=== PATIENT | female | born 1945 | race Caucasian/White ===

== ENCOUNTER 2019-02-21 08:21 | Inpatient (IN) | payer MEDICARE, BC ==
[~2019-02-21] VITALS: Ht 162.6 cm; Wt 64.9 kg
--- NOTE | 2019-02-21 08:30 | NUR ---
GENERALIZED WEAKNESS, DIFFICULTY WALKING X 2 WEEKS. RLE EDEMA NOTED. PATIENT A/OX4, BREATHING EVEN AND UNLABORED, NO SOB NOTED, NEEDS ATTENDED .CHANGED INTO GOWN, ATTACHED TO THE ROOFING APPRENTICE.
[2019-02-21 09:01] LABS: CALCIUM, SERUM 9.6 mg/dL (8.5-10.1); CARBON DIOXIDE 23 mmol/L (21-32); CHLORIDE 104 mmol/L (98-107); CREATININE 0.7 mg/dL (0.6-1.3); GLUCOSE 90 mg/dL (74-106); SODIUM SERUM 144 mmol/L (136-145); UREA NITROGEN, BLOOD 11 mg/dL (7-18)
[2019-02-21 09:07] LABS: ALANINE AMINOTRANSFERASE 12 U/L (12-78); ALBUMIN 3.8 g/dL (3.4-5.0); ALKALINE PHOSPHATASE 82 U/L (46-116); ASPARTATE AMINOTRANSFERASE 16 U/L (15-37); BILIRUBIN,DIRECT 0.3 mg/dL (0.0-0.2); BILIRUBIN,TOTAL 1.2 mg/dL (0.2-1.0); TOTAL PROTEIN, SERUM 7.6 g/dL (6.4-8.2)
[2019-02-21 09:21] LABS: APPEARANCE,URINE Clear (CLEAR); BILIRUBIN,URINE Negative (NEGATIVE); BLOOD, URINE Moderate Ery/uL (NEGATIVE); COLOR,URINE Yellow (YELLOW); KETONES,URINE 80 (NEGATIVE); LEUKOCYTE ESTERASE ,URINE Small (NEGATIVE); NITRITE, URINE Negative (NEGATIVE); PROTEIN,URINE Negative (NEGATIVE); UGLUCOSE Negative (NEGATIVE); UROBILINOGEN,URINE 0.2 EU/dL (0.2)
[2019-02-21 09:22] LABS: BASOPHILS % (AUTO) 0.4 % (0.0-2.0); EOSINOPHILS % (AUTO) 0.6 % (0.0-6.0); HEMATOCRIT 40 % (33-45); HEMOGLOBIN 13.8 g/dL (11.5-14.8); LYMPHOCYTES # (AUTO) 0.6 /CMM (0.8-4.8); LYMPHOCYTES % (AUTO) 8.6 % (20.0-44.0); MEAN CORPUSCULAR HGB CONC 34 g/dl (31.0-36.0); MEAN CORPUSCULAR VOLUME 87 fL (82-100); MONOCYTES # (AUTO) 0.6 /CMM (0.1-1.30); MONOCYTES % (AUTO) 7.5 % (2.0-12.0); NEUTROPHILS # (AUTO) 6.2 /CMM (1.8-8.9); NEUTROPHILS % (AUTO) 82.9 % (43.0-81.0); PLATELET COUNT (AUTO) 223 /CMM (150-450); RED BLOOD CELL COUNT(AUTO) 4.65 MIL/uL (4.0-5.2); WHITE BLOOD COUNT (AUTO) 7.5 K/uL (4.3-11.0)
[2019-02-21] MEDS ORDERED: AMLO-102 PO (09:26)
[2019-02-21] MEDS ORDERED: SIMV-49 PO (09:26)
[2019-02-21] MEDS ORDERED: HYDR25TA4 PO (09:26)
[2019-02-21 09:27] LABS: BACTERIA,URINE Few /HPF (None Seen); SQUAMOUS EPITHELIAL CELL,UR Few /HPF (None Seen)
[2019-02-21] MEDS ORDERED: CEFTRIAXONE 1GM BAG (ER ONLY) 50 ML IV ONE (09:57)
[2019-02-21] MEDS ORDERED: CEFTRIAXONE 1GM BAG (ER ONLY) 1 GM/50 ML PIGGYBACK IV ONE (10:00)
--- NOTE | 2019-02-21 10:17 | NUR ---
BED ASSIGN 325-1 TELE
[2019-02-21] MEDS ORDERED: POTASSIUM CHLORIDE 20 MEQ TAB.PRT.SR PO ONE ×2 (10:25→10:30)
[2019-02-21] MEDS ORDERED: MAG HYDROX/AL HYDROX/SIMETH 30 ML UDC PO PRN (10:30)
[2019-02-21] MEDS ORDERED: CLONIDINE HCL 0.1 MG TABLET PO PRN (10:30)
[2019-02-21] MEDS ORDERED: Z GUARD REMEDY 2 OZ OINT TP PRN (10:30)
[2019-02-21] MEDS ORDERED: ACETAMINOPHEN 325 MG TABLET PO PRN (10:30)
[2019-02-21] MEDS ORDERED: ONDANSETRON HCL/PF 4 MG/2 ML VIAL IVP PRN (10:30)
[2019-02-21] MEDS ORDERED: MAGNESIUM HYDROXIDE 30 ML UDC PO PRN (10:30)
[2019-02-21 11:05] VITALS: BP 164/101
--- NOTE | 2019-02-21 11:12 | NUR ---
PATIENT TRANSFERRED TO ROOM 325-1 VIA ACLS PROTOCOL. NO DISTRESS NOTED. NEEDS ATTENDED.
--- NOTE | 2019-02-21 11:15 | NUR ---
MS RN NOTES RECEIVED PATIENT ALERT, ORIENTED X3. NO SOB OR ACUTE DISTRESS NOTED. PATIENT SITUATED IN BED. REPORTS GENERALIZED WEAKENS. PATIENT ORIENTED TO ROOM. PERIPHERAL IV INTACT PATENT. BED IN LOW LOCKED POSITION. CALL LIGHT WITHIN REACH. DAUGHTER AT BEDSIDE. PLACED ON TELE MONITOR. WILL CONTINUE TO MONITOR.
[2019-02-21] MEDS: IV NS 0.9% 1,000 ML IV PRN (11:34)
[2019-02-21] MEDS: ENOXAPARIN SODIUM 40 MG/0.4 ML DISP.SYRIN SQ SCH (11:36)
[2019-02-21] MEDS: CEPHALEXIN MONOHYDRATE 500 MG CAPSULE PO SCH ×2 (11:36→20:46)
[2019-02-21 16:00] VITALS: BP 142/84
--- NOTE | 2019-02-21 18:31 | NUR ---
MS RN NOTES PATIENT IN BED RESTING NO SOB OR ACUTE DISTRESS NOTED. ALL DUE MEDICATIONS ADMINISTERED. ALL NEEDS MET. NO ACUTE CHANGES NOTED DURING SHIFT. WILL ENDORSE TO PM SHIFT DIPTI.
--- NOTE | 2019-02-21 19:30 | NUR ---
OUTPATIENT PHYSICAL THERAPIST OPENING NOTE RECEIVED PATIENT IN BED. A/O X4. TOLERATING ROOM AIR AT THIS TIME. RESPIRATIONS ARE EVEN AND UNLABORED. NO SOB NOTED. EXTERNAL TELE MONITOR READS SR WITH PVC HR 82. NO APPARENT DISTRESS AT THIS TIME. DENIES PAIN AT THIS TIME. IV ACCESS IN LAC #20 RUNNING NS @50ML/HR. BED IS LOW AND LOCKED, SIDE RAILS UP X2, HOB ELEVATED 30 DEGREES, BED ALARM ON. CALL LIGHT WITHIN REACH. WILL CONTINUE TO MONITOR.
[2019-02-21 20:00] VITALS: BP 154/87
--- NOTE | 2019-02-21 20:50 | NUR ---
PLUMBERS AND TOP HELPERS NOTE ADMINISTERED PRN TYLENOL 650MG PER PATIENTS REQUEST TO HELP HER TO SLEEP. PATIENT DID NOT WANT A SLEEPING PILL. WILL CONTINUE TO MONITOR.
[2019-02-21] MEDS ORDERED: SIMVASTATIN 20 MG TABLET ONE (21:37)
--- NOTE | 2019-02-21 21:40 | NUR ---
3D MODELER NOTE CHARGE HAD TO OVERRIDE MEDICATION FOR THE ORDER 20MG ZOCOR D/T THE PIXIS WAS NOT BEING STOCKED WITH 40MG ZOCOR.
[2019-02-21] MEDS ORDERED: SIMVASTATIN 40 MG TABLET PO SCH ×2 (22:00)
[2019-02-22] VITALS: BP 147/80
[2019-02-22 04:00] VITALS: BP 128/70
[2019-02-22 04:06] VITALS: BP 128/70
[2019-02-22 06:21] LABS: BASOPHILS % (AUTO) 0.6 % (0.0-2.0); EOSINOPHILS % (AUTO) 1.3 % (0.0-6.0); HEMATOCRIT 36 % (33-45); LYMPHOCYTES # (AUTO) 1.5 /CMM (0.8-4.8); LYMPHOCYTES % (AUTO) 25.3 % (20.0-44.0); MEAN CORPUSCULAR HGB CONC 34 g/dl (31.0-36.0); MEAN CORPUSCULAR VOLUME 86 fL (82-100); MONOCYTES # (AUTO) 0.7 /CMM (0.1-1.30); MONOCYTES % (AUTO) 12.3 % (2.0-12.0); NEUTROPHILS # (AUTO) 3.5 /CMM (1.8-8.9); NEUTROPHILS % (AUTO) 60.5 % (43.0-81.0); PLATELET COUNT (AUTO) 188 /CMM (150-450); RED BLOOD CELL COUNT(AUTO) 4.16 MIL/uL (4.0-5.2); WHITE BLOOD COUNT (AUTO) 5.8 K/uL (4.3-11.0)
[2019-02-22] MEDS: IV NS 0.9% 1,000 ML IV PRN (06:22)
--- NOTE | 2019-02-22 06:50 | NUR ---
APPLICATION ARCHITECT MANAGER CLOSING NOTE PATIENT IN BED. A/O X4. REMAINS TOLERATING ROOM AIR AT THIS TIME. RESPIRATIONS ARE EVEN AND UNLABORED. NO SOB NOTED. NO C/O PAIN. EXTERNAL TELE MONITOR READS SR WITH PVC HR 82. NO APPARENT DISTRESS AT THIS TIME. IV ACCESS MAINTAINED IN LAC #20 RUNNING NS @50ML/HR. BED IS LOW AND LOCKED, SIDE RAILS UP X2, HOB ELEVATED 30 DEGREES, BED ALARM ON. TURNED Q2HR, SKIN KEPT CLEAN AND DRY. CALL LIGHT WITHIN REACH. WILL ENDORSE TO NEXT SHIFT FOR DIPTI.
[2019-02-22 06:51] LABS: THYROID STIMULATING HORMONE 1.064 uIU/mL (0.358-3.74)
[2019-02-22 06:55] LABS: CALCIUM, SERUM 8.1 mg/dL (8.5-10.1); CREATININE 0.6 mg/dL (0.6-1.3); MAGNESIUM 1.5 mg/dL (1.8-2.4); PHOSPHORUS 3.6 mg/dL (2.5-4.9); POTASSIUM 3.4 mmol/L (3.5-5.1)
--- NOTE | 2019-02-22 07:12 | NUR ---
MS RN NOTES PATIENT IN BED ALERT ORIENTED X 4. NO ACUTE DISTRESS NOTED. BREATHING UNLABORED. IV ACCESS PATENT AND INTACT. NO REDNESS OR SWELLING NOTED. SAFETY MEASURES IN PLACE. CALL LIGHT WITHIN REACH. WILL CONTINUE TO MONITOR ACCORDINGLY.
[2019-02-22] MEDS ORDERED: AMLODIPINE BESYLATE 5 MG TABLET PO SCH (09:00)
[2019-02-22] MEDS ORDERED: HYDROCHLOROTHIAZIDE 25 MG TABLET PO SCH (09:00)
[2019-02-22] MEDS ORDERED: BENAZEPRIL HCL 20 MG TABLET PO SCH (09:00)
[2019-02-22] MEDS ORDERED: PANTOPRAZOLE 40 MG VIAL IV SCH (09:00)
[2019-02-22] MEDS: CEPHALEXIN MONOHYDRATE 500 MG CAPSULE PO SCH (09:18)
[2019-02-22 09:20] VITALS: BP 146/96
[2019-02-22] MEDS: ENOXAPARIN SODIUM 40 MG/0.4 ML DISP.SYRIN SQ SCH (09:21)
--- NOTE | 2019-02-22 09:30 | NUR ---
MS RN NOTES PATIENT SEEN AND EVALUATED BY ESA DAVIS WITH NEW ORDERS TO CANCEL MRI BRAIN, NOTED AND CARRIED OUT.
[2019-02-22] MEDS ORDERED: PANTOPRAZOLE 40 MG TABLET.DR PO SCH (09:49)
[2019-02-22] MEDS ORDERED: POTASSIUM CHLORIDE 20 MEQ TAB.PRT.SR PO SCH (10:00)
--- NOTE | 2019-02-22 10:22 | NUR ---
WOUND CARE CONSULT: PT PRESENTS WITH INCONTINENCE ASSOCIATED SKIN DAMAGE TO GLUTEAL CREASE AND DISCOLORATION TO LOWER EXTREMITIES, PRESENT ON ADMISSION. PT HAS RAISED SKIN LESION TO LEFT BUTTOCK, PRESENT ON ADMISSION. DEFER TO MD FOR LESION. RECOMMENDATIONS MADE FOR SKIN PROTECTION AND CARE. DISCUSSED WITH NURSING STAFF. WILL SEE PRN. MD IN AGREEMENT WITH PLAN OF CARE. DEFER TO DPM FOR LOWER EXTREMITIES.
[2019-02-22] MEDS: Magnesium 1GM/D5W 100ML PREMIX 100 ML IV SCH ×2 (10:45→12:06)
[2019-02-22] MEDS ORDERED: CEPH500C2 PO (12:52)
--- NOTE | 2019-02-22 18:15 | NUR ---
MS FIRE EXTINGUISHER CHARGER NOTES PATIENT DISCHARGE TO BOARD AND CARE WITH DAUGHTER WITH STABLE VITAL SIGNS. ALERT ORIENTED X 4. NO ACUTE DISTRESS NOTED. BREATHING UNLABORED. IV ACCESS REMOVED, NO REDNESS, NO BLEEDING OR SWELLING NOTED. DISCHARGED INSTRUCTIONS GIVEN TO THE PATIENT AND DAUGHTER INCLUDING NEW PRESCRIPTIONS, VERBALIZED UNDERSTANDING. ALL BELONGINGS ACCOUNTED. NEEDS ATTENDED AND ANTICIPATED. ASSISTED TO THE LOBBY, PICKED UP VIA PRIVATE CAR WITH DAUGHTER IN STABLE CONDITION.
--- NOTE | 2019-02-22 18:15 | NUR ---
MS FOOTWEAR STITCHER NOTES PATIENT DISCHARGE TO BOARD AND CARE WITH DAUGHTER WITH STABLE VITAL SIGNS. ALERT ORIENTED X 4. NO ACUTE DISTRESS NOTED. BREATHING UNLABORED. IV ACCESS PATENT AND INTACT. NO REDNESS OR SWELLING NOTED. Addendum: 02/22/19 at 1923 by REE FERNANDEZ RN DISREGARD ABOVE NOTES, WRONG DOCUMENTATION.
[2019-02-22] MEDS ORDERED: SIMVASTATIN 20 MG TABLET PO SCH (22:00)
== END 2019-02-22 18:18 | disposition home or self-care (01) | DRG 690 ==
LOC: ER 08:29 → MED 10:17 → TELE 20:27 → MED 02-22 08:14
PROVIDERS: ADMIT Registered Nurse; ATTEND Registered Nurse
DX: N39.0 Urinary tract infection, site not specified (principal); B49 Unspecified mycosis; E78.5 Hyperlipidemia, unspecified; R26.9 Unspecified abnormalities of gait and mobility; G35 Multiple sclerosis; E87.6 Hypokalemia; I16.0 Hypertensive urgency; I10 Essential (primary) hypertension; Z79.899 Other long term (current) drug therapy; Z66 Do not resuscitate; Z99.3 Dependence on wheelchair; B35.1 Tinea unguium; B96.89 Other specified bacterial agents as the cause of diseases classified elsewhere
CPT/HCPCS: 36415; 70450-TC; 71045-TC; 80048-TC; 80061-TC; 80076-TC; 81000-TC; 83735-TC; 84100-TC; 84443-TC; 84484-TC; 85025-TC; 87081-TC; 87086-TC; 93307-TC; 93970-TC; 97530-TC; C9113; G0378; J0696; J1650; J3475; J7030